=== PATIENT | male | born 1990 | race African-American/Black ===

== ENCOUNTER 2020-08-19 13:04 | Emergency (ER) | payer OTHER, SELFPAY ==
[2020-08-19 13:14] VITALS: BP 141/98; PULSE 86; RESP 16; TEMP 36.6; O2SAT 97
--- NOTE | 2020-08-19 13:41 | ED.EXTPRO ---
HPI - Extremity Problem General Chief complaint: Extremity Problem,Nontraumatic Stated complaint: R ARM PAIN/FINGERTIPS FEEL COLD Time Seen by Provider: 08/19/20 13:06 Source: patient Mode of arrival: ambulatory Limitations: no limitations History of Present Illness HPI Narrative: 29-year-old male presents to express care with complaints of pain to his right second, third, fourth and fifth fingertips which radiate up to his right elbow since yesterday. Patient denies swelling, bruising, numbness, tingling or erythema. Patient denies injury. Patient has not tried taking any [id number] medications for his symptoms. 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 Patient reports that he did have a 5-minute episode yesterday of dizziness and sweating while shopping at [employer]. Patient reports that he had not eaten anything before symptoms started. Patient denies chest pain, shortness of breath, nausea, vomiting or diarrhea. Patient is a non-smoker. Patient denies sick contacts. Patient denies recent travel. MD Complaint: extremity pain Onset (ago): day(s) (1) Pain Consistency: constant Location: right Quality: aching Relieving factors: nothing Exacerbating factors: nothing Associated symptoms: denies other symptoms Related Data Allergies Allergy/AdvReac Type Severity Reaction Status Date / Time No Known Allergies Allergy Unverified 09/01/18 09:45 Review of Systems Constitutional: Constitutional: Denies chills, Denies fatigue, Denies fever(s) and Denies weakness ENT: Denies dysphagia, Reports dizziness, Denies epistaxis and Denies sore throat Cardiovascular: Cardiovascular: Denies chest pain, Denies rapid heart rate and Denies radiating jaw, neck or arm pain Respiratory: Respiratory: Denies cough, Denies dyspnea and Denies wheezing Gastrointestinal: Gastrointestinal: Denies abdominal pain, Denies diarrhea, Denies nausea and Denies vomiting Musculoskeletal: Musculoskeletal: Denies back pain, Denies myalgias, Reports arthralgias, Denies joint swelling and Denies muscle cramps Neurologic: Denies vertigo and Denies syncope Endocrine: Endocrine: Denies fatigue, Denies polydipsia and Denies polyuria [facility] Past Medical History Medical History (Updated 08/19/20 @ 13:49 by Christine Mendoza APRN) Arthropathy of left shoulder Asthma Social History Social History (Updated 08/19/20 @ 13:45 by Christine Mendoza APRN) Smoking status: Never smoker Gender identity (if verbalized by the patient): Male Comments At time of signature, I agree with nursing past medical, surgical, social and family history. There is no relevant family history pertinent to the presenting complaint. Exam Const: General: no acute distress and alert Nutritional Appearance: well nourished Orientation/consciousness: patient oriented x3 Neck: Neck: normal visual inspection Resp: Effort & Inspection: normal respiratory effort, not labored and not tachypneic Auscultation: clear to auscultation bilaterally Cardio: Rate: regular rate, not bradycardic and not tachycardic Rhythm: regular rhythm Skin: General skin exam: normal color, no jaundice and no pallor Rashes: no rashes Wounds: no wounds Neuro: General: patient oriented x3, moves all extremities and no meningeal signs Speech: normal speech and Abnormal speech present Extrem: General: normal to inspection, no clubbing, cyanosis or edema, no pedal edema and no edema Other: Normal range of motion noted to right hand. Full range of motion noted. There is no pain noted with range of motion to right hand. Hand grasp are equal and strong. There is no swelling, bruising, erythema or signs of infection noted to bilateral extremities. Psych: Appearance: grossly normal Mental Status: mental status grossly normal Affect: normal affect Attitude: cooperative Thought content: Yes Normal thought content present Course Vital Signs Vital si
[2020-08-19 13:50] LABS: Glucose Point of Care 95 (65-105)
== END 2020-08-19 14:01 | disposition home or self-care (01) ==
PROVIDERS: Emergency Provider Nurse Practitioner Family
DX: M25.541 Pain in joints of right hand (principal); J45.909 Unspecified asthma, uncomplicated
CPT/HCPCS: 99213; G0463

== ENCOUNTER 2023-02-04 08:14 | Observation (INO) | payer OTHER, SELFPAY ==
[2023-02-04] VITALS (11 sets, daily range): BP systolic 106–135; BP diastolic 67–90; PULSE 90–110; RESP 12–24; TEMP 36.6–37.3; O2SAT 94–100; BMI 43.2
--- NOTE | ~2023-02-04 | XR_ITS ---
EXAMINATION: XR chest 2V DATE: 02/04/2023 10:04 INDICATION: Soreness of breath and fever TECHNIQUE: PA and lateral views of the chest were obtained. COMPARISON: None FINDINGS: Focal airspace opacity in the right upper lobe suspicious for pneumonia. Incidentally noted normal va riant azygos lobe and fissure in the more medial right upper lobe. Remainder of the lungs are clear w ith no other airspace opacities, pulmonary edema, pleural effusion or pneumothorax. The cardiomediast inal silhouette is normal. Visualized bones and soft tissues are unremarkable. IMPRESSION: 1. Focal right upper lobe opacity concerning for pneumonia. Recommend radiographic follow-up to resol ution. Reviewed, dictated and finalized at location A. IMPRESSION: 1. Focal right upper lobe opacity concerning for pneumonia. Recommend radiograp hic follow-up to resolution.
--- NOTE | ~2023-02-04 | CT_ITS ---
Clinical Indication: Covid 19 positive, pneumonia, shortness of breath CT Scan of the Chest with Contrast: Technique: Contiguous sections were acquired throughout the chest after intravenous administration of 100 cc of Omnipaque 350. Dose reduction technique was used on this scan by utilizing automated expos ure control and iterative reconstruction technique. The dose-length product (DLP) was 1129.96 mGy-cm. Findings: There is no evidence of any significant mediastinal, hilar or axillary lymphadenopathy. There is no f illing defect in the pulmonary arterial tree to suggest pulmonary embolus. There is no evidence of ao rtic dissection or aneurysm. There is no evidence of pleural or pericardial effusion. Extensive right upper lobe consolidation is compatible with pneumonia. Lungs otherwise are clear. Images through the upper abdomen reveal no abnormalities. Impression: Right upper lobe pneumonia. No pulmonary embolus. Reviewed, dictated and finalized at [facility]. Impression: Right upper lobe pneumonia. No pulmonary embolus.
--- NOTE | 2023-02-04 09:02 | ECG_ITS ---
Measurements Intervals [place] Rate: 117 P: 64 [place]: 139 QRS: 98 QRSD: 89 T: 90 QT: 302 QTc: 422 Interpretive Statements SINUS TACHYCARDIA RIGHT AXIS DEVIATION BORDERLINE T WAVE ABNORMALITY- HIGH LATERAL LEADS BASELINE WANDER- I, II, III, AVR, AVL, AVF, V1-V6 ABNORMAL ECG NO PREVIOUS ECG AVAILABLE FOR COMPARISON Electronically Signed On 02-04-2023 12:36:24 CDT by Getachew Jiang D.O.
--- NOTE | 2023-02-04 09:03 | PC.NURSE ---
Patient was placed into a wheelchair upon arrival. All VSS. Patient alert and oriented with non-labored respirations. He was placed in the waiting room to await an available exam room. This RN noted that the patient was lying on the waiting room floor. Upon assessment the patient was lying on the ground with eyes open. He was alert and responsive. He denies syncope. He reports that he was feeling overheated and wanted to stand up and when he did he felt very weak and lowered himself to the ground before he fell. Called for assistance and charge nurse made aware. Patient assisted back into WC. He was able to move back into the WC using his own strength with standby assist only. The patient's VSS were rechecked and were unchanged other than heart rate was slightly elevated. EKG obtained and patient back to room 2.
--- NOTE | 2023-02-04 09:25 | ED.FEVER ---
HPI - Fever General Chief Complaint: Fever <FANTA Queen Last Filed: 02/04/23 16:30> Stated Complaint: fever x 24 hours <FANTA Queen Last Filed: 02/04/23 16:30> Time Seen by Provider: 02/04/23 09:06 <FANTA Queen Last Filed: 02/04/23 16:30> History of Present Illness HPI Narrative: Patient is a 32-year-old male with a history of asthma here for evaluation of fever. Patient states that he had a temperature max of 102.6 yesterday that he has been treating with ibuprofen. He is afebrile today but states he has generalized body aches, nausea and fatigue. 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 He took a home COVID test that was negative. He denies any shortness of breath, cough, congestion, abdominal pain, dysuria, urgency or frequency. <FANTA Queen Last Filed: 02/04/23 16:30> Related Data Home Medications: Home Medications Medication Instructions Recorded Confirmed calcium carbonate 300 mg (750 mg) 2 tablet PO PRN PRN Gastric Reflux 02/04/23 02/04/23 chewable tablet (Tums) fluticasone propionate 50 1 spray intranasal DAILY 02/04/23 02/04/23 mcg/actuation nasal spray,suspension <FANTA Queen Last Filed: 02/04/23 16:30> Allergies/Adverse Reactions: Allergies Allergy/AdvReac Type Severity Reaction Status Date / Time No Known Allergies Allergy Unverified 02/04/23 08:15 <FANTA Queen Last Filed: 02/04/23 16:30> Review of Systems Review of Systems: Gen: Reports fevers Eyes: Denies eye pain or visual change ENT: Denies congestion Respiratory: Denies shortness of breath or cough CV: Denies chest pain or palpitations GI: Denies abdominal pain nausea, emesis or diarrhea : denies burning, urgency, frequency or hematuria Musculoskeletal: Denies back pain or muscle pain Neuro: Denies numbness, tingling, weakness or focal weakness Skin: Denies rash Except as documented, all other systems reviewed and negative <Bonnie Cottrell PA-C - Last Filed: 02/04/23 16:30> [facility] Past Medical History Medical History: Medical History (Updated 02/04/23 @ 14:02 by Magui Jin PA-C) Asthma <Bonnie Cottrell PA-C - Last Filed: 02/04/23 16:30> Surgical History Surgical History: Surgical History (Updated 02/04/23 @ 14:01 by Magui Jin PA-C) History of arthroscopy of right shoulder <Bonnie Cottrell PA-C - Last Filed: 02/04/23 16:30> Social History Social History: Social History (Updated 02/04/23 @ 14:01 by Magui Jin PA-C) Social History: Surrogate medical decision maker: Rafaela Fernandez, spouse. Code status: Full code. Smoking status: Never smoker Alcohol intake: never Substance use: never Lack of Transportation: No Lack of Food: Never True Current Housing: I Have Housing Concerned About Future Housing: No Difficulty Paying Gas/Electric Bills: No Difficulty Paying for Meds: No Currently Unemployed: No Education: Master's Degree or Higher Difficulty w/ Childcare or Family Care: No Additional living arrangements comments: Lives with spouse in [place]. Additional occupation/education comments: Works at [employer]. Spiritual care concerns: Yes (No pork or shellfish) <Bonnie Cottrell PA-C - Last Filed: 02/04/23 16:30> Exam Narrative: APPEARANCE: Appears fatigued but nontoxic in appearance. Head: Normocephalic and atraumatic. EYES: PERRLA/EOMI, conjunctivae clear NOSE: No nasal drainage EARS: External ear normal in appearance THROAT: Oropharynx is clear. Mucous membranes are moist. NECK: Supple. No adenopathy, no masses. RESPIRATORY: coarse breath sounds in right upper lobe. Airway patent, respirations nonlabored. CARDIOVASCULAR: Regular rate and rhythm without murmurs, rubs, or gallops. ABDOMI
[2023-02-04] MEDS: SODIUM CHLORIDE 0.9% IV 1,000 ML 999 ML IV CONT ×2 (09:59→10:51)
[2023-02-04] MEDS: ONDANSETRON INJ 4 MG/2 ML VIAL IV PUSH (09:59)
[2023-02-04 10:03] LABS: Hematocrit 45.3 % (42.0-52.0); Hemoglobin 15.3 g/dL (14.0-18.0); Mean Corpuscular HGB Conc 33.8 g/dl (32-36); Mean Corpuscular Hemoglobin 27.8 pg (26-34); Mean Corpuscular Volume 82.4 fl (80-100); Mean Platelet Volume 8.7 fl (7.4-10.4); Platelet Count Result 340 k/mm3 (150-375); Red Cell Distribution Width 13.2 % (11.5-14.5); White Blood Count 30.4 K/mm3 (4.5-10.0)
[2023-02-04 10:13] LABS: Alanine Aminotransferase 40 U/L (6-50); Albumin Level 4.6 g/dL (3.5-5.1); Alkaline Phosphatase 70 U/L (38-126); Anion Gap 11 mmol/L (8-16); Aspartate Amino Transferase 28 U/L (17-59); Bilirubin,Total 1.1 mg/dL (0.2-1.3); Blood Urea Nitrogen 15 mg/dL (9-20); Calcium 8.9 mg/dL (8.4-10.2); Carbon Dioxide 24 mmol/L (22-30); Chloride 99 mmol/L (98-107); Estimated CRCL calculation 75 ml/min; Estimated Glomerular Filt Rate 53; Glucose 141 mg/dL (65-110); Lactic Acid Reflex 1.8 mmol/L (0.7-2.0); Potassium 3.8 mmol/L (3.4-5.0); Sodium 134 mmol/L (137-145)
[2023-02-04 10:15] LABS: Total Cells Counted 100
[2023-02-04 10:16] LABS: Band Neutrophils Percent 5 % (0-6); Lymphocytes Absolute Manual 3.64 K/mm3 (1.1-4.5); Lymphocytes Percent Manual 12 % (18-44); Monocytes Absolute Manual 2.43 K/mm3 (0.1-0.90); Monocytes Percent Manual 8 % (3-9); Neutrophils Absolute Manual 24.32 K/mm3 (1.3-6.7); Neutrophils Percent Manual 75 % (46-73); Platelet Estimate Adequate (Adequate); Schistocytes None Seen (NORMAL)
[2023-02-04 10:25] LABS: Strep Group A RT-PCR NOT DETECTED (Negative)
[2023-02-04] MEDS: ALBUTEROL SULFATE NEB 2.5 MG/3 ML INH INHALATION (10:29)
[2023-02-04 10:39] LABS: Influenza A QL RT-PCR Negative (Negative); Influenza B QL RT-PCR Negative (Negative); RSV RNA, RT-PCR Negative (Negative); SARS-CoV-2 RNA PCR Positive
[2023-02-04] MEDS: DOXYCYCLINE 100 MG/NS 100 ML 100 MG/100 ML BAG IVPB ×2 (10:51→21:10)
--- NOTE | 2023-02-04 12:06 | PC.NURSE ---
Pt canNOT have PORK or SHELLFISH due to latter-day beliefs. Dietary contacted and made aware.
--- NOTE | 2023-02-04 14:00 | PM.IMHP ---
H&P: HPI History of Present Illness Date/Time: 02/04/23 14:00 Chief Complaint: Fever, body aches, chills. Narrative: This is a pleasant 32-year-old male with asthma presented to the emergency department from home for evaluation of fever, body aches, and chills. Patient provides the following history. He has not been feeling well for about 24 hours with generalized body aches, fatigue, nausea, and fever to 102.6? yesterday for which he took ibuprofen. His appetite and oral intake has not been great for the past 24 hours or so. 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 Incidentally the patient and his had COVID several weeks ago and all symptoms. In fact he tested home today and that was reportedly negative however SARS-CoV-2 by PCR was positive in the ED. His vital signs were stable on arrival to the emergency department. Pertinent labs include a WBC count of 30.4, sodium 134, BUN 15, creatinine 1.80, lactic acid 1.8. LFTs were within normal limits. Chest CTA showed no evidence of PE but demonstrated an extensive right upper lobe consolidation compatible with pneumonia. In the ED he received IV fluids and doses of ceftriaxone and doxycycline. He is being admitted in this setting for further treatment and close monitoring. Currently he is resting comfortably and he has no specific complaints. He has a history of asthma but he has not had any significant shortness of breath or wheezing. In fact he does not have a cough whatsoever. He has perhaps some mild right anterior chest discomfort but nothing significant. He also denies headache, neck ache, sore throat, sinus congestion, chest pain, vomiting, and diarrhea. Review of Systems Review of Systems: Twelve systems were reviewed and are negative except for as per HPI. [facility] Past Medical History Medical History (Updated 02/04/23 @ 14:02 by Magui Jin PA-C) Asthma Surgical History Surgical History (Updated 02/04/23 @ 14:01 by Magui Jin PA-C) History of arthroscopy of right shoulder Family History Family History (Updated 02/04/23 @ 23:21 by Magui Jin PA-C) Other Family history non-contributory Social History Social History (Updated 02/04/23 @ 23:21 by Magui Jin PA-C) Social History: Surrogate medical decision maker: Rafaela Fernandez, spouse. Code status: Full code. Smoking status: Never smoker Alcohol intake: never Substance use: never Lack of Transportation: No Lack of Food: Never True Current Housing: I Have Housing Concerned About Future Housing: No Difficulty Paying Gas/Electric Bills: No Difficulty Paying for Meds: No Currently Unemployed: No Education: Master's Degree or Higher Difficulty w/ Childcare or Family Care: No Additional living arrangements comments: Lives with spouse and 2 sons, age 8 and 9, in [place]. Additional occupation/education comments: Works at [employer]. Spiritual care concerns: Yes (No pork or shellfish) Meds Home Medications and Allergies Home Medications Medication Instructions Recorded Confirmed Type calcium carbonate 300 mg (750 mg) 2 tablet PO PRN PRN Gastric Reflux 02/04/23 02/04/23 History chewable tablet (Tums) fluticasone propionate 50 1 spray intranasal DAILY 02/04/23 02/04/23 History mcg/actuation nasal spray,suspension Allergies Allergy/AdvReac Type Severity Reaction Status Date / Time No Known Allergies Allergy Unverified 02/04/23 08:15 Vital Signs Vital Signs - 24 hr 02/04/23 08:36 02/04/23 09:02 02/04/23 10:30 Temperature 99.1 F Pulse Rate 110 H 107 H 90 Respiratory Rate 16 18 15 Blood Pressure 130/83 131/86 Pulse Oximetry 98 99 Oxygen Delivery Room Air 02/04/23 10:35 02/04/23 10:36 02/04/23 09:55 Temperature Pulse Rate 94 101 H Respiratory Rate 12 16 Blood Pressure 106/67 Pulse Oximetry 98 100 Ox
[2023-02-04] MEDS: ENOXAPARIN 40 MG/0.4 ML SYRINGE SUB-Q (17:33)
[2023-02-04 18:32] LABS: Anion Gap 9 mmol/L (8-16); Blood Urea Nitrogen 16 mg/dL (9-20); Calcium 8.1 mg/dL (8.4-10.2); Carbon Dioxide 26 mmol/L (22-30); Chloride 100 mmol/L (98-107); Estimated CRCL calculation 97 ml/min; Estimated Glomerular Filt Rate > 60; Glucose 141 mg/dL (65-110); Magnesium 1.9 mg/dL (1.6-2.3); Potassium 3.5 mmol/L (3.4-5.0); Sodium 135 mmol/L (137-145)
[2023-02-04 19:14] LABS: CRP 18.2 mg/dL (<1.0)
[2023-02-04 19:38] LABS: Procalcitonin 1.8 ng/mL
[2023-02-04] MEDS: cefTRIAXone 2 GM/NS 100 ML 2 GM/100 ML BAG IVPB (21:10)
[2023-02-05 05:56] VITALS: BP 139/87; PULSE 98; RESP 18; TEMP 36.1; O2SAT 100
[2023-02-05 07:15] LABS: Basophils Absolute Auto 0.1 K/mm3 (0.0-0.1); Basophils Percent Auto 0.2 % (0.2-1.2); Eosinophils Absolute Auto 0.2 K/mm3 (0-0.3); Eosinophils Percent Auto 0.7 % (0-4.4); Hematocrit 42.4 % (42.0-52.0); Immature Granulocyte Absolute 0.09 K/mm3 (0.00-0.031); Immature Granulocyte Percent A 0.4 % (0-0.5); Lymphocytes Absolute Auto 2.71 K/mm3 (0.9-3.2); Lymphocytes Percent Auto 12.6 % (18.3-44.2); Mean Corpuscular Hemoglobin 27.1 pg (26-34); Mean Platelet Volume 8.9 fl (7.4-10.4); Monocytes Absolute Auto 1.1 K/mm3 (0.1-0.6); Monocytes Percent Auto 5.2 % (2.6-8.5); Neutrophils Absolute Auto 17.3 K/mm3 (1.3-6.7); Neutrophils Percent Auto 80.9 % (45.5-73.1); Platelet Count Result 312 k/mm3 (150-375); Red Blood Count 5.17 M/mm3 (4.6-6.20); Red Cell Distribution Width 13.2 % (11.5-14.5); White Blood Count 21.4 K/mm3 (4.5-10.0)
[2023-02-05 07:36] LABS: Alanine Aminotransferase 31 U/L (6-50); Albumin Level 3.7 g/dL (3.5-5.1); Alkaline Phosphatase 64 U/L (38-126); Anion Gap 7 mmol/L (8-16); Aspartate Amino Transferase 22 U/L (17-59); Bilirubin,Total 0.5 mg/dL (0.2-1.3); Blood Urea Nitrogen 12 mg/dL (9-20); Calcium 8.1 mg/dL (8.4-10.2); Carbon Dioxide 27 mmol/L (22-30); Chloride 105 mmol/L (98-107); Estimated CRCL calculation 113 ml/min; Estimated Glomerular Filt Rate > 60; Glucose 106 mg/dL (65-110); Lactate Dehydrogenase 141 U/L (120-246); Potassium 3.9 mmol/L (3.4-5.0); Sodium 139 mmol/L (137-145)
[2023-02-05] MEDS: DOXYCYCLINE 100 MG/NS 100 ML 100 MG/100 ML BAG IVPB (08:32)
[2023-02-05] MEDS: FLUTICASONE PROPIONATE 0.05% NA SPR 16 GM BTL (*BKC) 1 SPRAY NASAL (08:35)
--- NOTE | 2023-02-05 12:29 | PM.IMPN ---
Progress Note: A&P Assessment and Plan (1) Sepsis: Code(s): A41.9 - Sepsis, unspecified organism Status: Acute Assessment and Plan: As evidenced by fever, tachycardia, leukocytosis, and acute kidney injury in the setting of infection. Adequately and cautiously hydrated in the ED with 2 L (avoid over-hydration with COVID). Lactic acid level within normal limits, blood pressures have been stable. Blood and sputum cultures ordered. (2) Right upper lobe pneumonia: Code(s): J18.9 - Pneumonia, unspecified organism Status: Acute Assessment and Plan: He has an extensive right upper lobe consolidation. Concerning concerning for postviral pneumonia given COVID earlier this month. Continue ceftriaxone (2 g daily), doxycycline (100 mg b.i.d.), and vancomycin (Pharmacy to dose) for now pending sputum culture and MRSA screen. Case discussed with MICHELE Belle pharmacist. Sputum to be attempted for culture; he does not currently have a cough. Check urinary antigens and mycoplasma. (3) Acute kidney injury: Code(s): N17.9 - Acute kidney failure, unspecified Status: Acute Assessment and Plan: May be related to sepsis or dehydration. He has also been taking ibuprofen but not in significant quantities. Adequately hydrated in ED; repeat renal function a.m.. If no improvement, a further workup will be pursued. Monitor strict I/O. Avoid nephrotoxic agents. (4) Asthma: Code(s): J45.909 - Unspecified asthma, uncomplicated Status: Acute Assessment and Plan: Stable, albuterol as needed Plan DVT prophylaxis with Lovenox GI prophylaxis not indicated Code status full code Subjective Date/time seen: 02/05/23 12:29 Interval history: 32-year-old male with asthma presenting with fever and shortness of breath and found to have pneumonia and acute kidney injury, on antibiotics. No overnight events noted. No chest pain or shortness of breath. No nausea, vomiting or diarrhea. No fevers or chills. Review of Systems Review of Systems: 12 point review of systems was assessed and was negative except as noted in the HPI Exam Narrative: General: No acute distress, alert and oriented per baseline HEENT: Atraumatic, normocephalic, mucous membranes moist CV: Regular rate and rhythm, S1, S2 Lungs: Clear to auscultation bilaterally, no rales or crackles noted, no wheezes, good air entry Abdomen: Soft, nontender, nondistended Extremities: Normal to inspection Skin: No rashes noted, no lesions or wounds seen Psych: Euthymic, normal affect Objective Data Vital Signs Vital Signs: Vital Signs - 24 hr 02/04/23 13:33 02/04/23 21:04 02/05/23 05:56 Temperature 98.1 F 97.8 F 97 F L Pulse Rate 93 90 98 Respiratory Rate 16 16 18 Blood Pressure 111/83 135/90 139/87 Pulse Oximetry 98 97 100 Oxygen Delivery 02/05/23 08:30 Temperature Pulse Rate Respiratory Rate Blood Pressure Pulse Oximetry Oxygen Delivery Room Air Intake/Output Intake/Output: Intake & Output 02/02/23 02/03/23 02/04/23 02/05/23 23:59 23:59 23:59 23:59 Intake Total 4090 1450 Output Total 1450 650 Balance 2640 800 Meds/Results Medications: Active Medications Generic Name Dose Route Start Last Admin Trade Name Freq PRN Reason Stop Dose Admin Acetaminophen 650 mg 02/04/23 10:30 Acetaminophen 325 Mg Tablet PO Q4H PRN Mild Pain (1-3) or Fever Calcium Carbonate 400 mg 02/04/23 14:53 Calcium Carbonate (Tums) 500 Mg (200 Mg Elemental) PO PRN PRN Gastric Reflux Enoxaparin Sodium 40 mg 02/04/23 18:00 02/04/23 17:33 Enoxaparin 40 Mg/0.4 Ml Syringe SUB-Q 40 mg Q24H BEKAH Administration Fluticasone Propionate 1 spray 02/05/23 09:00 02/05/23 08:35 Fluticasone Propionate 0.05% Na Spr 16 Gm Btl (*Bkc) NASAL 1 spray DAILY BEKAH Administration Doxycycline Hyclate 100 mg in 100 mls @ 100 mls/hr
[2023-02-05 14:00] VITALS: BP 134/90; PULSE 90; RESP 18; TEMP 36.1; O2SAT 96
--- NOTE | 2023-02-05 15:02 | PM.DS ---
DS: Admitting Diagnosis Discharge Date 02/05/23 Admitting Diagnosis fever DS: Discharge Diagnosis Discharge Diagnosis (1) Sepsis: Code(s): A41.9 - Sepsis, unspecified organism Status: Acute Assessment and Plan: As evidenced by fever, tachycardia, leukocytosis, and acute kidney injury in the setting of infection. Adequately and cautiously hydrated in the ED with 2 L (avoid over-hydration with COVID). Lactic acid level within normal limits, blood pressures have been stable. Blood and sputum cultures ordered. (2) Right upper lobe pneumonia: Code(s): J18.9 - Pneumonia, unspecified organism Status: Acute Assessment and Plan: He has an extensive right upper lobe consolidation. Concerning concerning for postviral pneumonia given COVID earlier this month. Continue ceftriaxone (2 g daily), doxycycline (100 mg b.i.d.), and vancomycin (Pharmacy to dose) for now pending sputum culture and MRSA screen. Case discussed with MICHELE Belle pharmacist. Sputum to be attempted for culture; he does not currently have a cough. Check urinary antigens and mycoplasma. Blood cultures NGTD (3) Acute kidney injury: Code(s): N17.9 - Acute kidney failure, unspecified Status: Acute Assessment and Plan: May be related to sepsis or dehydration. He has also been taking ibuprofen but not in significant quantities. Adequately hydrated in ED; repeat renal function a.m.. If no improvement, a further workup will be pursued. Monitor strict I/O. Avoid nephrotoxic agents. Resolved with IV fluids (4) Asthma: Code(s): J45.909 - Unspecified asthma, uncomplicated Status: Acute Assessment and Plan: Stable, albuterol as needed Plan DVT prophylaxis with Lovenox GI prophylaxis not indicated Code status full code DS: Summary Hospital Course Hospital Course: 32-year-old male with past medical history significant for asthma is presenting with fevers, chills and body aches and found to have right upper lobe pneumonia. He was started on doxycycline and ceftriaxone. He was also noted to have acute kidney injury given IV fluids. All symptoms resolved, leukocytosis improved. Creatinine resolved. He was discharged in stable condition on antibiotics per med rec, a Xopenex inhaler and encouraged p.o. intake. See above and med rec for details. Time Spent with Patient Time attestation: Total time spent providing and/or coordinating discharge services: Exam Narrative: General: No acute distress, alert and oriented per baseline HEENT: Atraumatic, normocephalic, mucous membranes moist CV: Regular rate and rhythm, S1, S2 Lungs: Clear to auscultation bilaterally, no rales or crackles noted, no wheezes, good air entry Abdomen: Soft, nontender, nondistended Extremities: Normal to inspection Skin: No rashes noted, no lesions or wounds seen Psych: Euthymic, normal affect DS: Data Data Completed and Pending Labs on day of discharge: Labs from last 24 hours 02/05/23 02/05/23 02/05/23 14:36 06:56 06:55 WBC 21.4 H RBC 5.17 Hgb 14.0 Hct 42.4 MCV 82.0 MCH 27.1 MCHC 33.0 RDW 13.2 Plt Count 312 MPV 8.9 Immature Gran % (Auto) 0.4 Neut % (Auto) 80.9 H Lymph % (Auto) 12.6 L [place] % (Auto) 5.2 Eos % (Auto) 0.7 Baso % (Auto) 0.2 Lymph # (Auto) 2.71 [place] # (Auto) 1.1 H Eos # (Auto) 0.2 Baso # (Auto) 0.1 Abs Immat Gran (auto) 0.09 H Absolute Neuts (auto) 17.3 H Absolute Nucleated RBC 0.0 Nucleated RBC % 0.0 Sodium Potassium Chloride Carbon Dioxide Anion Gap BUN Creatinine Estim Creat Clear Calc Estimated GFR Glucose Calcium Magnesium Ferritin 178.00 Total Bilirubin AST ALT Alkaline Phosphatase Lactate Dehydrogenase C-Reactive Protein Total Protein Albumin Procalcitonin Legionella Culture Pending Mycopla
[2023-02-08 18:15] LABS: Mycoplasma IgM Antibody Titer 70 U/mL (<770)
[2023-02-09 18:08] LABS: Pneumococcal Antigen Urine Detected (Not Detected)
== END 2023-02-05 17:35 | disposition home or self-care (01) ==
LOC: ANHED 10:47 → ANH3MEDSUR 02-05 15:04
PROVIDERS: Physician Assistant; Admitting Provider Chiropractor; Emergency Provider Physician Assistant; Visit Provider Student in an Organized Health Care Education/Training Program
DX: A41.9 Sepsis, unspecified organism (principal); J18.9 Pneumonia, unspecified organism; U07.1 COVID-19; N17.9 Acute kidney failure, unspecified; J45.909 Unspecified asthma, uncomplicated; D72.829 Elevated white blood cell count, unspecified; Z86.16 Personal history of COVID-19; R79.89 Other specified abnormal findings of blood chemistry; R94.31 Abnormal electrocardiogram [ECG] [EKG]; Z79.1 Long term (current) use of non-steroidal anti-inflammatories (NSAID); Z79.51 Long term (current) use of inhaled steroids; Z79.899 Other long term (current) drug therapy
CPT/HCPCS: 36415; 71046; 71275; 80048; 80053; 82728; 83605; 83615; 83735; 84145; 85025; 86140; 86738; 87040; 87081; 87637; 87651; 87899; 93005; 94640; 96361; 96365; 96366; 96367; 96372; 96375; 96376; 99285; A9270; G0378; J0131; J0696; J1650; J2405; J3370; J7030; Q9967